=== PATIENT | female | born 1950 | race Caucasian/White ===

== ENCOUNTER 2022-08-06 12:32 | Emergency (ER) | payer OTHER ==
[2022-08-06 13:47] VITALS: BMI 29.2
[2022-08-06 15:39] LABS: HEMATOCRIT 38.3 % (32.4-45.2); HEMOGLOBIN 12.7 GM/dL (10.7-15.3); MCH 29.9 pg (25.7-33.7); MCHC 33.2 g/dl (32.0-36.0); MEAN CELL VOLUME 90.1 fl (80-96); MEAN PLT VOLUME 7.7 fl (7.5-11.1); PLATELET COUNT 291 10^3/uL (134-434); RBC 4.25 M/mm3 (3.60-5.2); RDW 14.1 % (11.6-15.6); WHITE BLOOD COUNT 5.6 K/mm3 (4.0-10.0)
[2022-08-06 15:58] LABS: CALCIUM 10.9 mg/dL (8.5-10.1)
[2022-08-06 15:59] LABS: ALBUMIN 3.6 g/dl (3.4-5.0); BLOOD UREA NITROGEN 7.5 mg/dL (7-18)
[2022-08-06 16:01] LABS: BILIRUBIN,DIRECT 0.3 mg/dL (0.0-0.2)
[2022-08-06 16:02] LABS: CREATININE 0.9 mg/dL (0.55-1.3); PHOSPHOROUS 2.2 mg/dL (2.5-4.9)
[2022-08-06 16:03] LABS: BILIRUBIN,TOTAL 2.2 mg/dL (0.2-1); TOT PROT 6.9 g/dl (6.4-8.2)
[2022-08-06 21:01] VITALS: BP 123/79; PULSE 65; RESP 18; TEMP 98
== END 2022-08-06 20:30 ==
LOC: SUPCPDRO 12:32 → JER 12:32
DX: E83.52 Hypercalcemia (principal); E21.3 Hyperparathyroidism, unspecified
CPT/HCPCS: 36415; 80053; 82248; 83735; 83970; 84100; 85027; 93005; 93010; 99284-25

== ENCOUNTER 2022-09-23 13:39 | Observation (INO) | payer BC, OTHER ==
[2022-09-23 16:55] LABS: HEMATOCRIT 41.4 % (32.4-45.2); HEMOGLOBIN 13.8 GM/dL (10.7-15.3); MCH 29.9 pg (25.7-33.7); MCHC 33.3 g/dl (32.0-36.0); MEAN CELL VOLUME 89.7 fl (80-96); PLATELET COUNT 288 10^3/uL (134-434); RBC 4.62 M/mm3 (3.60-5.2); RDW 14.5 % (11.6-15.6); WHITE BLOOD COUNT 12.1 K/mm3 (4.0-10.0)
[2022-09-23 17:00] LABS: INR 0.97 (0.83-1.09); PROTHROMBIN TIME (PATIENT) 11.1 SEC (9.7-13.0)
[2022-09-23 17:03] LABS: ACTIVATED PTT 27.9 SECONDS (25.2-36.5)
[2022-09-23 17:10] LABS: ALBUMIN 4.1 g/dl (3.4-5.0); CALCIUM 11.6 mg/dL (8.5-10.1)
[2022-09-23 17:11] LABS: BLOOD UREA NITROGEN 15.9 mg/dL (7-18)
[2022-09-23 17:15] LABS: BILIRUBIN,TOTAL 2.2 mg/dL (0.2-1); TOT PROT 7.7 g/dl (6.4-8.2)
[2022-09-23 17:18] LABS: N-TERMINAL BNP 48.2 pg/ml (5-125)
[2022-09-23 17:57] LABS: ANISOCYTOSIS 1+; MACROCYTOSIS 0; PLATELET ESTIMATE NORMAL
[2022-09-23] MEDS ORDERED: ONDANSETRON 4 MG/2 ML VIAL IVPUSH ONE (18:20)
[2022-09-24 09:56] LABS: BASO % 0.2 % (0-2.0); EOS % 0.1 % (0-4.5); HEMATOCRIT 36.3 % (32.4-45.2); HEMOGLOBIN 12.5 GM/dL (10.7-15.3); MCH 30.7 pg (25.7-33.7); MCHC 34.5 g/dl (32.0-36.0); MEAN CELL VOLUME 88.9 fl (80-96); MEAN PLT VOLUME 7.5 fl (7.5-11.1); MONO % 4.8 % (3.8-10.2); NEUT % 86.9 % (42.8-82.8); PLATELET COUNT 243 10^3/uL (134-434); RBC 4.09 M/mm3 (3.60-5.2); RDW 14.1 % (11.6-15.6); WHITE BLOOD COUNT 7.3 K/mm3 (4.0-10.0)
[2022-09-24 10:30] LABS: CALCIUM 10.8 mg/dL (8.5-10.1)
[2022-09-24 10:31] LABS: ALBUMIN 3.5 g/dl (3.4-5.0); BLOOD UREA NITROGEN 12.1 mg/dL (7-18)
[2022-09-24 10:36] LABS: BILIRUBIN,TOTAL 3.2 mg/dL (0.2-1); TOT PROT 6.7 g/dl (6.4-8.2)
[2022-09-24] MEDS ORDERED: MULTIVITAMINS (DAILY MVI) TABLET (FP) ONE (10:38)
[2022-09-24] MEDS ORDERED: ASPIRIN 81 MG CHEWABLE TABLETS ONE (10:38)
[2022-09-24] MEDS ORDERED: amLODIPine BESYLATE 5 MG TABLET (FP) ONE (10:38)
[2022-09-24] MEDS: MEMANTINE HCL 10 MG TABLET (FP) PO SCH ×2 (10:45→21:27)
[2022-09-24] MEDS: ASPIRIN COATED 81 MG TABLET.EC PO SCH (10:45)
[2022-09-24] MEDS: MULTIVITAMINS (DAILY MVI) TABLET (FP) PO SCH (10:46)
[2022-09-24] MEDS: amLODIPine BESYLATE 5 MG TABLET (FP) PO SCH (10:46)
[2022-09-24 21:06] VITALS: BMI 29.6
[2022-09-24] MEDS: DONEPEZIL HCL 5 MG TABLET (FP) PO SCH (21:27)
[2022-09-24] MEDS: ATORVASTATIN CA 10 MG TABLET (FP) PO SCH (21:27)
[2022-09-25] MEDS: amLODIPine BESYLATE 5 MG TABLET (FP) PO SCH (10:11)
[2022-09-25] MEDS: MEMANTINE HCL 10 MG TABLET (FP) PO SCH ×2 (10:11→23:18)
[2022-09-25] MEDS: ASPIRIN COATED 81 MG TABLET.EC PO SCH (10:11)
[2022-09-25] MEDS: MULTIVITAMINS (DAILY MVI) TABLET (FP) PO SCH (10:11)
[2022-09-25 11:59] VITALS: RESP 18
[2022-09-25] MEDS ORDERED: BISACODYL 5 MG TABLET.DR (FP) PO ONE (14:26)
[2022-09-25] MEDS: ATORVASTATIN CA 10 MG TABLET (FP) PO SCH (22:19)
[2022-09-25] MEDS: DONEPEZIL HCL 5 MG TABLET (FP) PO SCH (22:19)
[2022-09-25 23:24] VITALS: TEMP 98.2
[2022-09-26 06:57] VITALS: BP 105/61; PULSE 58
[2022-09-26] MEDS: MULTIVITAMINS (DAILY MVI) TABLET (FP) PO SCH (11:31)
[2022-09-26] MEDS: ASPIRIN COATED 81 MG TABLET.EC PO SCH (11:31)
[2022-09-26] MEDS: amLODIPine BESYLATE 5 MG TABLET (FP) PO SCH (11:31)
[2022-09-26] MEDS: MEMANTINE HCL 10 MG TABLET (FP) PO SCH (11:35)
== END 2022-09-26 15:54 | disposition home or self-care (01) ==
LOC: JER 13:39 → JERBED 18:52 → UNDODISOB 09-24 19:12 → J4W 09-24 19:25 → J7W 09-25 11:14
PROVIDERS: ADMIT Internal Medicine; ATTEND Internal Medicine
DX: R55 Syncope and collapse (principal); F03.90 Unspecified dementia, unspecified severity, without behavioral disturbance, psychotic disturbance, mood disturbance, and anxiety; I10 Essential (primary) hypertension; E21.3 Hyperparathyroidism, unspecified; R29.6 Repeated falls; E78.5 Hyperlipidemia, unspecified; W18.39XA Other fall on same level, initial encounter; Y93.89 Activity, other specified; Y92.099 Unspecified place in other non-institutional residence as the place of occurrence of the external cause
CPT/HCPCS: 0241U-QW; 36415; 70450-TC; 71045-TC-FY; 72125-TC; 80053; 83735; 83880; 84443; 84484; 85025; 85610; 85730; 93005; 93010; 93306-TC; 97116-GP; 97161-GP; 99285-25; G0378

== ENCOUNTER 2023-05-30 10:09 | Observation (INO) | payer OTHER ==
[2023-05-30 11:51] LABS: INR 0.99 (0.83-1.09); PROTHROMBIN TIME (PATIENT) 11.5 SEC (9.7-13.0)
[2023-05-30 11:54] LABS: ACTIVATED PTT 27.4 SECONDS (25.2-36.5)
[2023-05-30] MEDS: SODIUM CHLORIDE 1,000 ML IV SCH (11:54)
[2023-05-30 11:56] LABS: BASO % 0.5 % (0-2.0); EOS % 1.9 % (0-4.5); HEMATOCRIT 36.6 % (32.4-45.2); HEMOGLOBIN 12.1 GM/dL (10.7-15.3); LYMPH % 26.6 % (8-40); MCH 29.7 pg (25.7-33.7); MEAN CELL VOLUME 89.8 fl (80-96); MEAN PLT VOLUME 7.5 fl (7.5-11.1); MONO % 4.5 % (3.8-10.2); NEUT % 66.5 % (42.8-82.8); PLATELET COUNT 274 10^3/uL (134-434); RBC 4.08 M/mm3 (3.60-5.2); RDW 14.1 % (11.6-15.6)
[2023-05-30 12:16] LABS: POTASSIUM 4.8 mmol/L (3.5-5.1)
[2023-05-30 12:20] LABS: ALBUMIN 3.2 g/dl (3.4-5.0); CALCIUM 10.5 mg/dL (8.5-10.1)
[2023-05-30 12:22] LABS: BLOOD UREA NITROGEN 8.8 mg/dL (7-18)
[2023-05-30 12:25] LABS: TOT PROT 6.5 g/dl (6.4-8.2)
[2023-05-30 12:26] LABS: BILIRUBIN,TOTAL 1.9 mg/dL (0.2-1)
[2023-05-30 15:16] LABS: BILIRUBIN,DIRECT 0.4 mg/dL (0.0-0.2)
[2023-05-30] MEDS ORDERED: ASPIRIN 81 MG CHEWABLE TABLETS ONE (15:41)
[2023-05-30] MEDS: ASPIRIN COATED 81 MG TABLET.EC PO SCH (17:02)
[2023-05-30] MEDS ORDERED: ATORVASTATIN CA 20 MG TABLET (FP) ONE (21:22)
[2023-05-30] MEDS ORDERED: DONEPEZIL HCL 5 MG TABLET (FP) ONE (21:22)
[2023-05-30] MEDS ORDERED: DONEPEZIL HCL 5 MG TABLET (FP) PO SCH (22:00)
[2023-05-30] MEDS: ATORVASTATIN CA 10 MG TABLET (FP) PO SCH (22:33)
[2023-05-30] MEDS: MEMANTINE HCL 10 MG TABLET (FP) PO SCH (22:33)
[2023-05-31 00:58] LABS: URINE APPEARANCE Clear; URINE BILIRUBIN Negative (NEGATIVE); URINE COLOR Yellow; URINE GLUCOSE (UA) Negative (NEGATIVE); URINE KETONE Negative (NEGATIVE); URINE LEUK ESTERASE Negative (NEGATIVE); URINE NITRITE Negative (NEGATIVE); URINE PROTEIN Negative (NEGATIVE); URINE UROBILINOGEN 0.2 mg/dL (0.2-1.0)
[2023-05-31 01:09] VITALS: BMI 31.4
[2023-05-31 07:35] LABS: BASO % 0.4 % (0-2.0); HEMATOCRIT 38.1 % (32.4-45.2); HEMOGLOBIN 12.7 GM/dL (10.7-15.3); MCH 29.7 pg (25.7-33.7); MCHC 33.4 g/dl (32.0-36.0); MEAN CELL VOLUME 88.7 fl (80-96); MEAN PLT VOLUME 7.7 fl (7.5-11.1); MONO % 3.2 % (3.8-10.2); NEUT % 74.4 % (42.8-82.8); PLATELET COUNT 302 10^3/uL (134-434); RBC 4.29 M/mm3 (3.60-5.2); RDW 14.5 % (11.6-15.6); WHITE BLOOD COUNT 6.5 K/mm3 (4.0-10.0)
[2023-05-31 07:44] LABS: POTASSIUM 4.6 mmol/L (3.5-5.1)
[2023-05-31 07:46] LABS: ALBUMIN 3.7 g/dl (3.4-5.0); CALCIUM 10.7 mg/dL (8.5-10.1)
[2023-05-31 07:47] LABS: BLOOD UREA NITROGEN 12.3 mg/dL (7-18); MAGNESIUM 1.9 mg/dL (1.8-2.4)
[2023-05-31 07:49] LABS: CREATININE 0.9 mg/dL (0.55-1.3); PHOSPHOROUS 2.9 mg/dL (2.5-4.9)
[2023-05-31 07:51] LABS: TOT PROT 7.1 g/dl (6.4-8.2)
[2023-05-31] MEDS: ENOXAPARIN NA (PORCINE) 40 MG/0.4 ML DISP.SYRIN SQ SCH (09:49)
[2023-05-31] MEDS: MEMANTINE HCL 10 MG TABLET (FP) PO SCH ×2 (09:49→21:57)
[2023-05-31] MEDS: ASPIRIN COATED 81 MG TABLET.EC PO SCH (09:49)
[2023-05-31] MEDS: SODIUM CHLORIDE 1,000 ML IV SCH (15:32)
[2023-05-31] MEDS: ATORVASTATIN CA 10 MG TABLET (FP) PO SCH (21:57)
[2023-06-01] MEDS: ENOXAPARIN NA (PORCINE) 40 MG/0.4 ML DISP.SYRIN SQ SCH (10:17)
[2023-06-01] MEDS: MEMANTINE HCL 10 MG TABLET (FP) PO SCH ×2 (10:17→21:36)
[2023-06-01] MEDS: ASPIRIN COATED 81 MG TABLET.EC PO SCH (10:17)
[2023-06-01] MEDS: SODIUM CHLORIDE 1,000 ML IV SCH (10:18)
[2023-06-01] MEDS: ATORVASTATIN CA 10 MG TABLET (FP) PO SCH (21:36)
[2023-06-02 03:49] VITALS: RESP 18
[2023-06-02] MEDS: ENOXAPARIN NA (PORCINE) 40 MG/0.4 ML DISP.SYRIN SQ SCH (09:26)
[2023-06-02] MEDS: ASPIRIN COATED 81 MG TABLET.EC PO SCH (09:26)
[2023-06-02] MEDS: MEMANTINE HCL 10 MG TABLET (FP) PO SCH (09:26)
[2023-06-02 15:22] VITALS: BP 146/85; PULSE 63; TEMP 97.9
== END 2023-06-02 18:22 ==
LOC: JER 10:09 → JERBED 13:47 → J4W 23:38
PROVIDERS: ADMIT Internal Medicine; ATTEND Internal Medicine
PROC: 3E023GC Introduction of Other Therapeutic Substance into Muscle, Percutaneous Approach (ICD-10-PCS; principal; 2023-05-30)
DX: R55 Syncope and collapse (principal); F03.90 Unspecified dementia, unspecified severity, without behavioral disturbance, psychotic disturbance, mood disturbance, and anxiety; E78.5 Hyperlipidemia, unspecified; E21.3 Hyperparathyroidism, unspecified; I10 Essential (primary) hypertension; R29.6 Repeated falls
CPT/HCPCS: 0241U-QW; 36415; 70450-TC; 70551-TC; 71045-TC-FY; 76705-TC; 80053; 80061; 81003; 82248; 82550; 83036; 83735; 84100; 84484; 85025; 85610; 85730; 86850; 86900; 86901; 87635; 93005; 93010; 93306-TC; 93880-TC; 96372; 97116-GP; 99285-25; G0378

== ENCOUNTER 2023-07-01 21:43 | Observation (INO) | payer OTHER ==
[2023-07-01 21:52] VITALS: BMI 22.3
[2023-07-01 23:04] LABS: BASO % 0.7 % (0-2.0); EOS % 1.5 % (0-4.5); HEMATOCRIT 35.7 % (32.4-45.2); LYMPH % 22.2 % (8-40); MCH 29.5 pg (25.7-33.7); MCHC 33.4 g/dl (32.0-36.0); MEAN CELL VOLUME 88.2 fl (80-96); MEAN PLT VOLUME 7.7 fl (7.5-11.1); MONO % 4.8 % (3.8-10.2); NEUT % 70.8 % (42.8-82.8); PLATELET COUNT 247 10^3/uL (134-434); RBC 4.05 M/mm3 (3.60-5.2); RDW 14.2 % (11.6-15.6)
[2023-07-01 23:22] LABS: INR 0.94 (0.83-1.09); PROTHROMBIN TIME (PATIENT) 10.9 SEC (9.7-13.0)
[2023-07-01 23:25] LABS: ACTIVATED PTT 24.3 SECONDS (25.2-36.5)
[2023-07-01 23:31] LABS: POTASSIUM 5.3 mmol/L (3.5-5.1)
[2023-07-01 23:33] LABS: BLOOD UREA NITROGEN 19.3 mg/dL (7-18); CALCIUM 10.7 mg/dL (8.5-10.1)
[2023-07-01 23:34] LABS: ALBUMIN 3.5 g/dl (3.4-5.0)
[2023-07-01 23:38] LABS: BILIRUBIN,TOTAL 1.3 mg/dL (0.2-1); TOT PROT 6.5 g/dl (6.4-8.2)
[2023-07-02 01:26] LABS: POTASSIUM 4.2 mmol/L (3.5-5.1)
[2023-07-02 01:27] LABS: CALCIUM 10.5 mg/dL (8.5-10.1)
[2023-07-02 01:28] LABS: BLOOD UREA NITROGEN 18.2 mg/dL (7-18)
[2023-07-02 01:39] LABS: URINE APPEARANCE CLEAR; URINE BILIRUBIN NEGATIVE (NEGATIVE); URINE COLOR YELLOW; URINE GLUCOSE (UA) NEGATIVE (NEGATIVE); URINE KETONE NEGATIVE (NEGATIVE); URINE LEUK ESTERASE NEGATIVE (NEGATIVE); URINE NITRITE NEGATIVE (NEGATIVE); URINE PROTEIN NEGATIVE (NEGATIVE)
[2023-07-02] MEDS ORDERED: SODIUM CHLORIDE 1,000 ML IV SCH (07:00)
[2023-07-02 07:46] LABS: BASO % 0.4 % (0-2.0); EOS % 1.8 % (0-4.5); HEMATOCRIT 36.7 % (32.4-45.2); LYMPH % 26.8 % (8-40); MCH 29.2 pg (25.7-33.7); MCHC 32.7 g/dl (32.0-36.0); MEAN CELL VOLUME 89.4 fl (80-96); MONO % 4.3 % (3.8-10.2); NEUT % 66.7 % (42.8-82.8); PLATELET COUNT 244 10^3/uL (134-434); RDW 13.5 % (11.6-15.6)
[2023-07-02 07:58] LABS: POTASSIUM 4.2 mmol/L (3.5-5.1)
[2023-07-02 08:09] LABS: ALBUMIN 3.4 g/dl (3.4-5.0); CALCIUM 10.3 mg/dL (8.5-10.1); MAGNESIUM 1.8 mg/dL (1.8-2.4)
[2023-07-02 08:12] LABS: PHOSPHOROUS 2.7 mg/dL (2.5-4.9); URIC ACID 4.3 mg/dL (2.6-7.2)
[2023-07-02 08:14] LABS: BILIRUBIN,TOTAL 1.4 mg/dL (0.2-1); TOT PROT 6.4 g/dl (6.4-8.2)
[2023-07-02 08:27] LABS: CREATININE 0.8 mg/dL (0.55-1.3)
[2023-07-02] MEDS ORDERED: amLODIPine BESYLATE 5 MG TABLET (FP) PO SCH (10:00)
[2023-07-02] MEDS ORDERED: LEVOTHYROXINE NA 75 MCG TABLET (FP) PO SCH (10:00)
[2023-07-02] MEDS ORDERED: MEMANTINE HCL 10 MG TABLET (FP) PO SCH (10:00)
[2023-07-02] MEDS ORDERED: CALCITRIOL 0.25 MCG CAPSULE (FP) PO SCH (10:00)
[2023-07-02] MEDS ORDERED: ERGOCALCIFEROL (VIT D2) 50,000 UNIT (1.25 MG) CAPSULE PO SCH ×2 (10:00)
[2023-07-02] MEDS ORDERED: PATIENT'S OWN MEDICATION (NON-FORMULARY) (Sevelamer Hcl [Sevelamer Hcl] 800 MG Tablet) PO SCH (10:00)
[2023-07-02] MEDS ORDERED: ALLOPURINOL 100 MG TABLET (FP) PO SCH (10:00)
[2023-07-02] MEDS: ENOXAPARIN NA (PORCINE) 40 MG/0.4 ML DISP.SYRIN SQ SCH (10:30)
[2023-07-02] MEDS: ALLOPURINOL 100 MG TABLET (FP) PO SCH (10:30)
[2023-07-02] MEDS: MEMANTINE HCL 10 MG TABLET (FP) PO SCH ×2 (13:24→21:35)
[2023-07-02] MEDS: ATORVASTATIN CA 10 MG TABLET (FP) PO SCH (21:35)
[2023-07-02] MEDS: DONEPEZIL HCL 5 MG TABLET (FP) PO SCH (21:35)
[2023-07-02] MEDS ORDERED: DONEPEZIL HCL 5 MG TABLET (FP) PO SCH (22:00)
[2023-07-02] MEDS ORDERED: ATORVASTATIN CA 10 MG TABLET (FP) PO SCH (22:00)
[2023-07-02] MEDS ORDERED: ATORVASTATIN CA 40 MG TABLET (FP) PO SCH (22:00)
[2023-07-03] MEDS: ALLOPURINOL 100 MG TABLET (FP) PO SCH (12:34)
[2023-07-03] MEDS: ENOXAPARIN NA (PORCINE) 40 MG/0.4 ML DISP.SYRIN SQ SCH (12:34)
[2023-07-03] MEDS: MEMANTINE HCL 10 MG TABLET (FP) PO SCH ×2 (12:34→22:00)
[2023-07-03] MEDS ORDERED: PATIENT'S OWN MEDICATION (NON-FORMULARY) (Tizanidine Hcl 4 MG Tablet) PO PRN (12:59)
[2023-07-03] MEDS: ATORVASTATIN CA 10 MG TABLET (FP) PO SCH (22:00)
[2023-07-03] MEDS: DONEPEZIL HCL 5 MG TABLET (FP) PO SCH (22:00)
[2023-07-04] MEDS: ALLOPURINOL 100 MG TABLET (FP) PO SCH ×2 (11:16→11:19)
[2023-07-04] MEDS: MEMANTINE HCL 10 MG TABLET (FP) PO SCH (11:16)
[2023-07-04] MEDS: ENOXAPARIN NA (PORCINE) 40 MG/0.4 ML DISP.SYRIN SQ SCH (11:16)
[2023-07-04 13:57] VITALS: BP 141/66; PULSE 66; RESP 18; TEMP 98
[2023-07-05 14:44] LABS: COCAINE, UR NEGATIVE (NEGATIVE); METHADONE, UR NEGATIVE (NEGATIVE); OPIATES, URI NEGATIVE (NEGATIVE); URINE AMPHETAMINES NEGATIVE (NEGATIVE); URINE BARBITURATES NEGATIVE (NEGATIVE); URINE BENZODIAZEPINES NEGATIVE (NEGATIVE)
[2023-07-05 14:45] LABS: PHENCYCLIDINE,URINE NEGATIVE (NEGATIVE)
== END 2023-07-04 14:16 ==
LOC: JER 21:43 → JERBED 07-02 02:18 → J4W 07-02 11:05
PROVIDERS: ADMIT Internal Medicine; ATTEND Internal Medicine
PROC: 3E023GC Introduction of Other Therapeutic Substance into Muscle, Percutaneous Approach (ICD-10-PCS; principal; 2023-07-02)
DX: R55 Syncope and collapse (principal); F03.90 Unspecified dementia, unspecified severity, without behavioral disturbance, psychotic disturbance, mood disturbance, and anxiety; I10 Essential (primary) hypertension; E78.5 Hyperlipidemia, unspecified; W18.39XA Other fall on same level, initial encounter; Y93.89 Activity, other specified; Y92.099 Unspecified place in other non-institutional residence as the place of occurrence of the external cause; E21.3 Hyperparathyroidism, unspecified; Z90.79 Acquired absence of other genital organ(s); Z29.89 Encounter for other specified prophylactic measures
CPT/HCPCS: 36415; 70450-TC; 71045-TC-FY; 72125-TC; 72170-TC-FY; 80048; 80053; 80307; 81003; 82550; 82553; 83735; 84100; 84484; 84550; 85025; 85610; 85730; 87086; 87635; 93005; 93010; 95816; 96372; 97116-GP; 97162-GP; 99285-25; G0378

== ENCOUNTER 2023-09-08 14:01 | Emergency (ER) | payer OTHER ==
[2023-09-08 14:27] VITALS: TEMP 97.9; BMI 30.9
[2023-09-08 15:29] LABS: BASO % 0.4 % (0-2.0); HEMATOCRIT 39.1 % (32.4-45.2); LYMPH % 26.4 % (8-40); MCH 29.3 pg (25.7-33.7); MCHC 33.3 g/dl (32.0-36.0); MEAN PLT VOLUME 7.4 fl (7.5-11.1); MONO % 3.6 % (3.8-10.2); NEUT % 68.6 % (42.8-82.8); PLATELET COUNT 301 10^3/uL (134-434); RBC 4.45 M/mm3 (3.60-5.2); RDW 14.3 % (11.6-15.6); WHITE BLOOD COUNT 5.5 K/mm3 (4.0-10.0)
[2023-09-08 15:35] LABS: INR 1.04 (0.83-1.09); PROTHROMBIN TIME (PATIENT) 12.1 SEC (9.7-13.0)
[2023-09-08 15:38] LABS: ACTIVATED PTT 28.5 SECONDS (25.2-36.5)
[2023-09-08 15:49] LABS: URINE APPEARANCE CLEAR; URINE BILIRUBIN NEGATIVE (NEGATIVE); URINE COLOR YELLOW; URINE GLUCOSE (UA) 1+ (NEGATIVE); URINE KETONE NEGATIVE (NEGATIVE); URINE LEUK ESTERASE NEGATIVE (NEGATIVE); URINE NITRITE NEGATIVE (NEGATIVE); URINE PROTEIN NEGATIVE (NEGATIVE)
[2023-09-08 16:05] LABS: CHLORIDE 110 mmol/L (98-107); POTASSIUM 3.9 mmol/L (3.5-5.1); SODIUM 139 mmol/L (136-145)
[2023-09-08 16:07] LABS: ALBUMIN 3.3 g/dl (3.4-5.0); ANION GAP 4 mmol/L (4-13); BLOOD UREA NITROGEN 8.1 mg/dL (7-18); CALCIUM 10.9 mg/dL (8.5-10.1); CO2 26 mmol/L (21-32); GLUCOSE,RANDOM 229 mg/dL (74-106)
[2023-09-08 16:10] LABS: CREATININE 1.1 mg/dL (0.55-1.3)
[2023-09-08 16:11] LABS: SGOT/AST 13 U/L (15-37); SGPT/ALT 22 U/L (13-61)
[2023-09-08 16:12] LABS: OPIATES, URI NEGATIVE (NEGATIVE); URINE BARBITURATES NEGATIVE (NEGATIVE)
[2023-09-08 16:13] LABS: COCAINE, UR NEGATIVE (NEGATIVE); METHADONE, UR NEGATIVE (NEGATIVE); PHENCYCLIDINE,URINE NEGATIVE (NEGATIVE); URINE AMPHETAMINES NEGATIVE (NEGATIVE); URINE BENZODIAZEPINES NEGATIVE (NEGATIVE)
[2023-09-08 16:13] LABS: BILIRUBIN,TOTAL 2.5 mg/dL (0.2-1); TOT PROT 6.6 g/dl (6.4-8.2)
[2023-09-08 16:14] LABS: ALK PHOS 114 U/L (45-117)
[2023-09-08 17:49] VITALS: BP 111/56; PULSE 91; RESP 16
== END 2023-09-08 18:26 | disposition home or self-care (01) ==
LOC: JER 14:01
DX: R45.851 Suicidal ideations (principal); F32.A Depression, unspecified
CPT/HCPCS: 36415; 80053; 80307; 81003; 85025; 85610; 85730; 93005; 93010; 99285-25

== ENCOUNTER 2023-12-01 15:03 | Emergency (ER) | payer OTHER ==
[2023-12-01 15:27] VITALS: BMI 32.2
[2023-12-01 17:00] LABS: BASO % 0.7 % (0-2.0); EOS % 1.4 % (0-4.5); HEMATOCRIT 36.8 % (32.4-45.2); HEMOGLOBIN 12.5 GM/dL (10.7-15.3); LYMPH % 25.6 % (8-40); MCH 29.7 pg (25.7-33.7); MEAN CELL VOLUME 87.5 fl (80-96); MEAN PLT VOLUME 7.6 fl (7.5-11.1); MONO % 3.8 % (3.8-10.2); NEUT % 68.5 % (42.8-82.8); PLATELET COUNT 279 10^3/uL (134-434); RDW 14.5 % (11.6-15.6); WHITE BLOOD COUNT 6.2 K/mm3 (4.0-10.0)
[2023-12-01 17:19] LABS: POTASSIUM 4.7 mmol/L (3.5-5.1)
[2023-12-01 17:21] LABS: CALCIUM 10.6 mg/dL (8.5-10.1)
[2023-12-01 17:22] LABS: ALBUMIN 3.4 g/dl (3.4-5.0); BLOOD UREA NITROGEN 7.7 mg/dL (7-18)
[2023-12-01 17:25] LABS: CREATININE 0.9 mg/dL (0.55-1.3)
[2023-12-01 17:27] LABS: BILIRUBIN,TOTAL 1.9 mg/dL (0.2-1); TOT PROT 6.8 g/dl (6.4-8.2)
[2023-12-01 20:22] LABS: PH,URINE 6.5 (5.0-8.0); URINE APPEARANCE CLEAR; URINE BILIRUBIN NEGATIVE (NEGATIVE); URINE COLOR YELLOW; URINE GLUCOSE (UA) NEGATIVE (NEGATIVE); URINE KETONE NEGATIVE (NEGATIVE); URINE LEUK ESTERASE NEGATIVE (NEGATIVE); URINE NITRITE NEGATIVE (NEGATIVE); URINE PROTEIN NEGATIVE (NEGATIVE)
[2023-12-02 01:43] VITALS: BP 142/75; PULSE 60; RESP 14; TEMP 98.1
== END 2023-12-02 05:16 | disposition home or self-care (01) ==
LOC: JER 15:03
DX: R55 Syncope and collapse (principal)
CPT/HCPCS: 36415; 70450-TC; 71045-TC-FY; 80053; 81003; 82962; 84439; 84443; 84484; 85025; 87086; 93005; 93010; 99285-25

== ENCOUNTER 2024-01-18 19:31 | Observation (INO) | payer OTHER ==
[2024-01-18 19:43] VITALS: BMI 27.4
[2024-01-18] MEDS: SODIUM CHLORIDE 0.9% 500 ML INFUS.BAG IV ONE (20:29)
[2024-01-18 20:31] LABS: BASO % 0.3 % (0-2.0); EOS % 1.5 % (0-4.5); HEMATOCRIT 36.1 % (32.4-45.2); HEMOGLOBIN 12.2 GM/dL (10.7-15.3); LYMPH % 24.7 % (8-40); MCH 29.9 pg (25.7-33.7); MCHC 33.8 g/dl (32.0-36.0); MEAN CELL VOLUME 88.4 fl (80-96); MEAN PLT VOLUME 7.3 fl (7.5-11.1); MONO % 4.3 % (3.8-10.2); NEUT % 69.2 % (42.8-82.8); PLATELET COUNT 287 10^3/uL (134-434); RBC 4.09 M/mm3 (3.60-5.2); RDW 14.5 % (11.6-15.6); WHITE BLOOD COUNT 5.2 K/mm3 (4.0-10.0)
[2024-01-18 21:06] LABS: CALCIUM 10.5 mg/dL (8.5-10.1)
[2024-01-18 21:07] LABS: ALBUMIN 3.6 g/dl (3.4-5.0); BLOOD UREA NITROGEN 6.5 mg/dL (7-18)
[2024-01-18 21:10] LABS: CREATININE 1.1 mg/dL (0.55-1.3)
[2024-01-18 21:12] LABS: BILIRUBIN,TOTAL 1.5 mg/dL (0.2-1); TOT PROT 6.6 g/dl (6.4-8.2)
[2024-01-18 21:27] LABS: EPI CELLS >36 /uL (0-25.1); HYALINE CASTS 2 /uL (0-3.1); URINE APPEARANCE CLOUDY; URINE BACTERIA 269 /uL (0-1359); URINE BILIRUBIN NEGATIVE (NEGATIVE); URINE COLOR YELLOW; URINE GLUCOSE (UA) NEGATIVE (NEGATIVE); URINE KETONE TRACE (NEGATIVE); URINE LEUK ESTERASE TRACE (NEGATIVE); URINE NITRITE NEGATIVE (NEGATIVE); URINE PROTEIN NEGATIVE (NEGATIVE); URINE WBC 28 /uL (0-25.8)
[2024-01-18 22:04] LABS: URINE RBC 20 /uL (0-23.9)
[2024-01-19 07:17] LABS: BASO % 0.5 % (0-2.0); EOS % 1.9 % (0-4.5); HEMATOCRIT 34.8 % (32.4-45.2); HEMOGLOBIN 11.9 GM/dL (10.7-15.3); LYMPH % 31.4 % (8-40); MCH 30.1 pg (25.7-33.7); MCHC 34.1 g/dl (32.0-36.0); MEAN PLT VOLUME 7.6 fl (7.5-11.1); MONO % 5.5 % (3.8-10.2); NEUT % 60.7 % (42.8-82.8); PLATELET COUNT 244 10^3/uL (134-434); RBC 3.96 M/mm3 (3.60-5.2); RDW 14.3 % (11.6-15.6); WHITE BLOOD COUNT 5.7 K/mm3 (4.0-10.0)
[2024-01-19 07:40] LABS: POTASSIUM 4.2 mmol/L (3.5-5.1)
[2024-01-19 07:52] LABS: BLOOD UREA NITROGEN 4.3 mg/dL (7-18); CALCIUM 10.3 mg/dL (8.5-10.1)
[2024-01-19 07:55] LABS: CREATININE 0.7 mg/dL (0.55-1.3); MAGNESIUM 1.8 mg/dL (1.8-2.4); PHOSPHOROUS 2.2 mg/dL (2.5-4.9)
[2024-01-19] MEDS: LIDOCAINE 4% PATCH TP SCH (10:04)
[2024-01-19] MEDS: ASPIRIN 81 MG CHEWABLE TABLETS PO SCH (10:04)
[2024-01-19] MEDS: MULTIVITAMINS (DAILY MVI) TABLET (FP) PO SCH (10:05)
[2024-01-19] MEDS: FLUoxetine HCL 20 MG CAPSULE PO SCH (10:05)
[2024-01-19] MEDS: MEMANTINE HCL 10 MG TABLET (FP) PO SCH ×2 (10:05→22:13)
[2024-01-19] MEDS: ALLOPURINOL 100 MG TABLET (FP) PO SCH (10:05)
[2024-01-19] MEDS: ACETAMINOPHEN 325 MG TABLET (FP) PO SCH (16:03)
[2024-01-19] MEDS ORDERED: LIDOCAINE PATCH REMOVAL MC SCH ×2 (22:00)
[2024-01-19] MEDS ORDERED: ATORVASTATIN CA 10 MG TABLET (FP) PO SCH (22:00)
[2024-01-19] MEDS: ATORVASTATIN CA 10 MG TABLET (FP) PO SCH (22:13)
[2024-01-19] MEDS: LIDOCAINE PATCH REMOVAL MC SCH (22:18)
[2024-01-20] MEDS: ACETAMINOPHEN 325 MG TABLET (FP) PO SCH (06:15)
[2024-01-20 08:59] LABS: BASO % 0.4 % (0-2.0); EOS % 1.2 % (0-4.5); HEMOGLOBIN 12.4 GM/dL (10.7-15.3); LYMPH % 22.9 % (8-40); MCH 30.2 pg (25.7-33.7); MCHC 34.4 g/dl (32.0-36.0); MEAN CELL VOLUME 87.7 fl (80-96); MEAN PLT VOLUME 7.7 fl (7.5-11.1); MONO % 5.5 % (3.8-10.2); PLATELET COUNT 263 10^3/uL (134-434); RBC 4.11 M/mm3 (3.60-5.2); RDW 14.4 % (11.6-15.6); WHITE BLOOD COUNT 5.6 K/mm3 (4.0-10.0)
[2024-01-20] MEDS: MULTIVITAMINS (DAILY MVI) TABLET (FP) PO SCH (10:11)
[2024-01-20] MEDS: FLUoxetine HCL 20 MG CAPSULE PO SCH (10:11)
[2024-01-20] MEDS: ALLOPURINOL 100 MG TABLET (FP) PO SCH (10:12)
[2024-01-20] MEDS: ASPIRIN 81 MG CHEWABLE TABLETS PO SCH (10:12)
[2024-01-20] MEDS: LIDOCAINE 4% PATCH TP SCH (12:41)
[2024-01-20 15:07] VITALS: BP 147/75; PULSE 72; RESP 18; TEMP 97.9
== END 2024-01-20 16:59 ==
LOC: JER 19:31 → JERBED 22:06 → J8W 01-19 17:08
PROVIDERS: ADMIT Internal Medicine; ATTEND Internal Medicine
PROC: 3E0337Z Introduction of Electrolytic and Water Balance Substance into Peripheral Vein, Percutaneous Approach (ICD-10-PCS; principal; 2024-01-18)
DX: R55 Syncope and collapse (principal); I10 Essential (primary) hypertension; E78.5 Hyperlipidemia, unspecified; E21.3 Hyperparathyroidism, unspecified; F03.90 Unspecified dementia, unspecified severity, without behavioral disturbance, psychotic disturbance, mood disturbance, and anxiety; M10.9 Gout, unspecified
CPT/HCPCS: 36415; 71045-TC-FY; 80048; 80053; 81003; 82962; 83036; 83735; 84100; 84439; 84443; 84484; 85025; 87086; 87635; 93005; 93010; 99285-25; G0378

== ENCOUNTER 2024-06-23 19:45 | Emergency (ER) | payer OTHER ==
[2024-06-23 20:21] VITALS: BMI 30.9
[2024-06-23] MEDS ORDERED: ACETAMINOPHEN 325 MG TABLET (FP) ONE (20:43)
[2024-06-23] MEDS: ACETAMINOPHEN 325 MG TABLET (FP) PO ONE (20:49)
[2024-06-24] MEDS ORDERED: IBUPROFEN 400 MG TABLET (FP) PO ONE (03:29)
[2024-06-24] MEDS: IBUPROFEN 400 MG TABLET (FP) PO ONE (03:34)
[2024-06-24 04:14] VITALS: BP 148/67; PULSE 61; RESP 16; TEMP 98.7
== END 2024-06-24 05:35 | disposition home or self-care (01) ==
LOC: JER 19:45
DX: M25.511 Pain in right shoulder (principal); W01.0XXA Fall on same level from slipping, tripping and stumbling without subsequent striking against object, initial encounter
CPT/HCPCS: 73030-TC-RT-FY; 99283-25

== ENCOUNTER 2024-09-11 12:22 | Observation (INO) | payer OTHER ==
[2024-09-11 14:15] LABS: BASO % 0.8 % (0-2.0); EOS % 0.4 % (0-4.5); HEMATOCRIT 36.6 % (32.4-45.2); HEMOGLOBIN 12.1 GM/dL (10.7-15.3); LYMPH % 14.4 % (8-40); MCH 30.4 pg (25.7-33.7); MCHC 32.9 g/dl (32.0-36.0); MEAN CELL VOLUME 92.4 fl (80-96); MEAN PLT VOLUME 7.9 fl (7.5-11.1); MONO % 5.6 % (3.8-10.2); NEUT % 78.8 % (42.8-82.8); PLATELET COUNT 218 10^3/uL (134-434); RBC 3.96 M/mm3 (3.60-5.2); RDW 13.7 % (11.6-15.6); WHITE BLOOD COUNT 4.8 K/mm3 (4.0-10.0)
[2024-09-11] MEDS ORDERED: ACETAMINOPHEN 325 MG TABLET (FP) ONE (14:18)
[2024-09-11] MEDS: ACETAMINOPHEN 325 MG TABLET (FP) PO ONE (14:20)
[2024-09-11 14:22] LABS: INR 1.08 (0.83-1.09); PROTHROMBIN TIME (PATIENT) 12.2 SEC (9.7-13.0)
[2024-09-11 14:24] LABS: ACTIVATED PTT 33.2 SECONDS (25.2-36.5)
[2024-09-11 14:34] LABS: POTASSIUM 4.2 mmol/L (3.5-5.1)
[2024-09-11 14:36] LABS: CALCIUM 10.8 mg/dL (8.5-10.1)
[2024-09-11 14:37] LABS: ALBUMIN 3.6 g/dl (3.4-5.0); MAGNESIUM 1.7 mg/dL (1.8-2.4)
[2024-09-11 14:40] LABS: CREATININE 0.9 mg/dL (0.55-1.3)
[2024-09-11 14:41] LABS: BILIRUBIN,TOTAL 1.9 mg/dL (0.2-1); TOT PROT 6.7 g/dl (6.4-8.2)
[2024-09-11] MEDS ORDERED: MAGNESIUM 1GM/D5W - 1 GM/100 ML IVPB IVPB ONE (15:09)
[2024-09-11] MEDS: MAGNESIUM 1GM/D5W - 1 GM/100 ML IVPB IVPB ONE (15:21)
[2024-09-11 16:43] LABS: URINE APPEARANCE CLEAR; URINE BILIRUBIN NEGATIVE (NEGATIVE); URINE COLOR YELLOW; URINE GLUCOSE (UA) NEGATIVE (NEGATIVE); URINE KETONE NEGATIVE (NEGATIVE); URINE LEUK ESTERASE NEGATIVE (NEGATIVE); URINE NITRITE NEGATIVE (NEGATIVE); URINE PROTEIN TRACE (NEGATIVE)
[2024-09-12 07:13] LABS: POTASSIUM 4.1 mmol/L (3.5-5.1)
[2024-09-12 07:14] LABS: CALCIUM 10.5 mg/dL (8.5-10.1)
[2024-09-12 07:15] LABS: BLOOD UREA NITROGEN 6.6 mg/dL (7-18); HEMATOCRIT 36.2 % (32.4-45.2); HEMOGLOBIN 12.1 GM/dL (10.7-15.3); MAGNESIUM 1.7 mg/dL (1.8-2.4); MCH 30.7 pg (25.7-33.7); MCHC 33.4 g/dl (32.0-36.0); MEAN CELL VOLUME 92.1 fl (80-96); MEAN PLT VOLUME 7.9 fl (7.5-11.1); PLATELET COUNT 204 10^3/uL (134-434); RBC 3.93 M/mm3 (3.60-5.2); RDW 13.7 % (11.6-15.6); WHITE BLOOD COUNT 2.4 K/mm3 (4.0-10.0)
[2024-09-12 07:18] LABS: CREATININE 0.8 mg/dL (0.55-1.3); PHOSPHOROUS 2.2 mg/dL (2.5-4.9)
[2024-09-12] MEDS: ENOXAPARIN NA (PORCINE) 40 MG/0.4 ML DISP.SYRIN SQ SCH (11:08)
[2024-09-12] MEDS ORDERED: OSELTAMIVIR PHOSPHATE 75 MG CAPSULE ONE (11:08)
[2024-09-12] MEDS ORDERED: ENOXAPARIN NA (PORCINE) 40 MG/0.4 ML DISP.SYRIN SQ ONE (11:08)
[2024-09-12] MEDS: OSELTAMIVIR PHOSPHATE 75 MG CAPSULE PO SCH (11:09)
[2024-09-12 18:24] VITALS: BMI 28.2
[2024-09-12] MEDS: MEMANTINE HCL 10 MG TABLET (FP) PO SCH (21:59)
[2024-09-12] MEDS: DONEPEZIL HCL 5 MG TABLET (FP) PO SCH (21:59)
[2024-09-13 08:30] LABS: HEMATOCRIT 36.2 % (32.4-45.2); HEMOGLOBIN 12.4 GM/dL (10.7-15.3); MCHC 34.3 g/dl (32.0-36.0); MEAN CELL VOLUME 90.5 fl (80-96); MEAN PLT VOLUME 8.1 fl (7.5-11.1); PLATELET COUNT 211 10^3/uL (134-434); RBC 4.01 M/mm3 (3.60-5.2); RDW 13.8 % (11.6-15.6)
[2024-09-13 08:38] LABS: POTASSIUM 3.7 mmol/L (3.5-5.1)
[2024-09-13 08:41] LABS: CALCIUM 10.2 mg/dL (8.5-10.1)
[2024-09-13 08:42] LABS: ALBUMIN 3.3 g/dl (3.4-5.0); BLOOD UREA NITROGEN 8.7 mg/dL (7-18); MAGNESIUM 1.8 mg/dL (1.8-2.4); WHITE BLOOD COUNT 1.6 K/mm3 (4.0-10.0)
[2024-09-13 08:45] LABS: CREATININE 0.8 mg/dL (0.55-1.3)
[2024-09-13 08:46] LABS: BILIRUBIN,TOTAL 1.6 mg/dL (0.2-1); TOT PROT 6.2 g/dl (6.4-8.2)
[2024-09-13 09:41] LABS: ANISOCYTOSIS 0; HELMET CELLS 0; HOWELL-JOLLY BODIES 0; MACROCYTOSIS 0; OVALOCYTE 0; ROULEAU 0; SICKELED CELLS 0; TARGET CELLS 0; TEAR DROP CELLS 0; TOXIC GRANULATION 0
[2024-09-13 12:26] LABS: PHOSPHOROUS 2.6 mg/dL (2.5-4.9)
[2024-09-13] MEDS: FLUoxetine HCL 20 MG CAPSULE PO SCH (17:42)
[2024-09-13] MEDS: ATORVASTATIN CA 10 MG TABLET (FP) PO SCH (22:27)
[2024-09-14 07:18] LABS: HEMATOCRIT 35.5 % (32.4-45.2); HEMOGLOBIN 12.2 GM/dL (10.7-15.3); MCH 31.2 pg (25.7-33.7); MCHC 34.3 g/dl (32.0-36.0); MEAN CELL VOLUME 90.9 fl (80-96); MEAN PLT VOLUME 7.9 fl (7.5-11.1); PLATELET COUNT 190 10^3/uL (134-434); RDW 13.7 % (11.6-15.6)
[2024-09-14 07:32] LABS: POTASSIUM 3.8 mmol/L (3.5-5.1)
[2024-09-14 07:37] LABS: ALBUMIN 3.1 g/dl (3.4-5.0); BLOOD UREA NITROGEN 6.8 mg/dL (7-18); CALCIUM 10.3 mg/dL (8.5-10.1)
[2024-09-14 07:40] LABS: BILIRUBIN,TOTAL 1.3 mg/dL (0.2-1); TOT PROT 6.1 g/dl (6.4-8.2)
[2024-09-14 07:41] LABS: CREATININE 0.7 mg/dL (0.55-1.3)
[2024-09-14 08:11] LABS: WHITE BLOOD COUNT 1.9 K/mm3 (4.0-10.0)
[2024-09-14 15:51] VITALS: PULSE 68; RESP 20
[2024-09-14 18:39] VITALS: BP 108/76; TEMP 98.1
== END 2024-09-14 08:20 ==
LOC: JER 12:22 → JERBED 16:25 → J4W 09-12 19:36
PROVIDERS: ADMIT Internal Medicine; ATTEND Internal Medicine
PROC: 3E023GC Introduction of Other Therapeutic Substance into Muscle, Percutaneous Approach (ICD-10-PCS; principal; 2024-09-11)
PROC: 3E033GC Introduction of Other Therapeutic Substance into Peripheral Vein, Percutaneous Approach (ICD-10-PCS; 2024-09-11)
DX: J09.X2 Influenza due to identified novel influenza A virus with other respiratory manifestations (principal); F03.90 Unspecified dementia, unspecified severity, without behavioral disturbance, psychotic disturbance, mood disturbance, and anxiety; I10 Essential (primary) hypertension; W18.39XA Other fall on same level, initial encounter; Y93.89 Activity, other specified; Y92.099 Unspecified place in other non-institutional residence as the place of occurrence of the external cause; Y99.8 Other external cause status; E78.5 Hyperlipidemia, unspecified; E21.3 Hyperparathyroidism, unspecified; R50.9 Fever, unspecified; Z90.79 Acquired absence of other genital organ(s)
CPT/HCPCS: 0241U-QW; 36415; 70450-TC; 71045-TC-FY; 72125-TC; 72170-TC-FY; 73030-TC-RT-FY; 80048; 80053; 81003; 82962; 83735; 84100; 84484; 85025; 85027; 85610; 85730; 86850; 86900; 86901; 87086; 93005; 93010; 93306-TC; 96365; 96372; 99285-25; G0378